=== PATIENT | male | born 1965 | race Two or more races ===

== ENCOUNTER 2020-06-28 11:17 | Emergency (ER) | payer OTHER ==
[~2020-06-28] VITALS: Ht 182.9 cm; Wt 106.1 kg
[2020-06-28 12:07] VITALS: BP 133/56
== END 2020-06-28 13:55 | disposition home or self-care (01) ==
LOC: ER 11:17
DX: H40.9 Unspecified glaucoma (principal); H53.8 Other visual disturbances
CPT/HCPCS: 76510

== ENCOUNTER → 2020-07-09 | Emergency (ER) | payer OTHER ==
[~2020-07-09] VITALS: Ht 182.9 cm; Wt 106.6 kg
[2020-07-09 15:25] VITALS: BP 137/75
== END | disposition short-term general hospital (02) ==
LOC: ER 10:16
DX: I63.9 Cerebral infarction, unspecified (principal)
CPT/HCPCS: 70450